=== PATIENT | male | born 1965 | race Caucasian/White ===

== ENCOUNTER 2021-03-30 13:48 | Outpatient (CLI) | payer BC, SELFPAY | END 2021-03-30 13:49 | disposition home or self-care (01) | LOC: ANHAUDIO 13:49 | PROVIDERS: PCP Family Medicine; Visit Provider Otolaryngology | DX: J31.0 Chronic rhinitis (principal); H91.90 Unspecified hearing loss, unspecified ear | CPT/HCPCS: 92557; 92567 ==

== ENCOUNTER 2021-07-11 10:30 | Outpatient (RCR) | payer SELFPAY | END 2021-07-11 23:59 | disposition home or self-care (01) | LOC: ANHAUDIO 10:30 | PROVIDERS: PCP Family Medicine; Visit Provider Family Medicine | DX: Z46.1 Encounter for fitting and adjustment of hearing aid (principal) | CPT/HCPCS: 99199; V5260 ==

== ENCOUNTER → 2022-06-06 09:46 | Outpatient (CLI) | payer BC, SELFPAY ==
--- NOTE | ~2022-06-06 | CT_ITS ---
EXAMINATION: CT sinus wo con DATE: 06/06/2022 10:04 INDICATION: Chronic sinusitis TECHNIQUE: Computed tomography (CT) of the paranasal sinuses was performed without intravenous contra st. The dose-length product (DLP) was 278.24 mGy-cm. Iterative reconstruction was used. COMPARISON: None FINDINGS: There is normal development and pneumatization of the paranasal sinuses. There is reyes bu llosa of the right middle turbinate. There are 4 mm of leftward deviation of the nasal septum. The fr ontal, sphenoid, ethmoid, and maxillary sinuses are clear. The bilateral ostiomeatal complexes are pa tent. Visualized soft tissues are unremarkable. IMPRESSION: 1. Reyes bullosa of the right middle turbinate. Reviewed, dictated and finalized at location B.
== END ==
PROVIDERS: PCP Otolaryngology; Visit Provider Otolaryngology
DX: J32.8 Other chronic sinusitis (principal)
CPT/HCPCS: 70486

== ENCOUNTER 2022-12-12 00:17 | Day surgery (SDC) | payer BC, SELFPAY ==
[2022-11-29 15:12] VITALS: BMI 27.1
--- NOTE | 2022-11-29 15:17 | PC.NURSE ---
Report to the Outpatient Waiting Room, entrance under the green pavilion located off [facility], at time 0730 on date 12/12/22. Planned Procedure Time: 0930. Time changes happen often and if your time is changed the preop area will call you the afternoon before. - You and your visitor will be asked to self-screen and do not enter if you have any COVID symptoms. - Only one visitor is requested with a max of two and NO children visitors are allowed at this time. - The patient visitor may be requested to leave or wait in car when not with patient due to distancing restrictions. - A mask is optional within the hospital at this time. Patients may have clear liquids (water, carbonated beverages, clear teas, apple juice) until 3 hours prior to surgery with a maximum of 20 ounces. - No food from midnight until time of surgery Take the following medications with a SIP of water the morning of surgery: NONE DO NOT STOP ANY OF YOUR OTHER PRESCRIPTION MEDICATIONS PRIOR TO SURGERY?EXCEPT THE FOLLOWING Medications to discontinue per physician: VITAMINS/SUPPLEMENTS Date to take last dose: 12/08/22 Please no make-up, nail zimbabwean, hairspray, perfume, deodorant, or body powder the day of surgery. No jewelry (including any body piercings) or valuables the day of surgery, leave them at home. Please take a shower or bath the night before, or the morning of, surgery with an antibacterial soap. Wear comfortable, loose fitting clothing. - Jewelry must be removed prior to entering the operating room. Rings and piercings that are not removed may be cut off. - The hospital will not accept responsibility for valuables. - Please leave all valuables, including medications, at home the day of surgery. If you are going home after surgery, a licensed [facility]pr ambulance driver must drive you home. - NO public transportation without another adult if you receive anesthesia. - We recommend that an adult stay with you for 24 hours following discharge. - We also recommend that you do not drive, make important decision, drink alcoholic beverages, or take any drugs that were not prescribed by your health care provider for at least 24 hours after your discharge time. Follow any additional instructions given to you from your surgeon. If you or anyone in your household have experienced Covid symptoms in the past week, please notify your surgeon or the nurse liaison at the phone number below for possible testing. Telephone instructions given to PT - ANAID ALBERT and asked if any additional questions and then verbalized understanding. Patient advised to call surgeon office or pre surgery nurse liaison [phone] if any additional questions.
--- NOTE | 2022-12-11 07:49 | PM.IMHP ---
H&P: HPI History of Present Illness Date/Time: 12/11/22 07:49 Chief Complaint: Nasal obstruction, nasal congestion, turbinate hypertrophy, septal deviation, bilateral reyes bullosa Narrative: Planned procedure Review of Systems Review of Systems: All systems reviewed & are unremarkable except as noted in HPI and below [facility] Family History Family History Father Carcinoma of colon Mother Breast cancer Diabetes mellitus Sibling Breast cancer Social History Social History Smoking status: Never smoker Tobacco type: smokeless tobacco Smokeless tobacco user: chewing tobacco Alcohol intake: current Drinks per week: 42 Alcohol use details: 5-6 BEER/DAY Substance use: never Substance use type: does not use Living arrangements: with family Spiritual care concerns: No Meds Home Medications and Allergies Home Medications Medication Instructions Recorded Confirmed Type ascorbic acid (vitamin C) 500 mg 500 mg PO DAILY 03/14/21 11/29/22 History capsule cholecalciferol (vitamin D3) 25 25 mcg PO DAILY 03/14/21 11/29/22 History mcg (1,000 unit) capsule garlic 5,000 mcg tablet 5 mg PO DAILY 07/22/21 11/29/22 History fexofenadine 180 mg tablet 180 mg PO DAILY 11/29/22 11/29/22 History pseudoephedrine HCl 120 mg 120 mg PO Q12H PRN Allergy Symptoms 11/29/22 11/29/22 History tablet,extended release (Sudafed 12 Hour) Allergies Allergy/AdvReac Type Severity Reaction Status Date / Time No Known Allergies Allergy Verified 11/29/22 15:09 Exam Narrative: septal deviation, turbinate hypertrophy, reyes Assessment and Plan Assessment and plan (1) Hypertrophy of both inferior nasal turbinates: Code(s): J34.3 - Hypertrophy of nasal turbinates Status: Acute Assessment and Plan: Plan OR for endoscopic assisted septoplasty, inferior turbinate submucosal reduction with outfracture, resection of bilateral reyes. Risks were discussed including bleeding infection need for postoperative procedures to repair any injury septal perforation postoperative bleeding damage to any structure above the clavicles by myself failure resolve symptoms damage to any structure during the induction and remains anesthesia. Blindness change in vision CSF leak brain brain damage. Patient voiced understanding and agreed. (2) Nasal septal deviation: Code(s): J34.2 - Deviated nasal septum Status: Acute (3) Nasal congestion: Code(s): R09.81 - Nasal congestion Status: Acute (4) Nasal obstruction: Code(s): J34.89 - Other specified disorders of nose and nasal sinuses Status: Acute (5) Reyes bullosa: Code(s): J34.89 - Other specified disorders of nose and nasal sinuses Status: Acute
--- NOTE | 2022-12-11 10:04 | P.PNAN_ITS ---
Anes - Initial Pre Proc Eval Procedure: Operation Date: 12/12/22 11:00 Proposed Procedures p Endoscopic Septoplasty, - Bc Ceballos MD s Bilateral Inferior Turbinectomy with Outfracture, Resection Bilateral Randi Bullosa - cB Ceballos MD Date/Time: 12/11/22 10:04 Surgeon: Bc Ceballos MD Pre Op Diagnosis: septal deviation and turbinate hypertrophy Patient Data Age: 57 Gender: M Height: 1.83 m Weight: 90.72 kg Allergies Allergy/AdvReac Type Severity Reaction Status Date / Time No Known Allergies Allergy Verified 12/12/22 08:20 Home Medications Medication Instructions Recorded Confirmed Type ascorbic acid (vitamin C) 500 mg 500 mg PO DAILY 03/14/21 11/29/22 History capsule cholecalciferol (vitamin D3) 25 25 mcg PO DAILY 03/14/21 11/29/22 History mcg (1,000 unit) capsule garlic 5,000 mcg tablet 5 mg PO DAILY 07/22/21 11/29/22 History fexofenadine 180 mg tablet 180 mg PO DAILY 11/29/22 11/29/22 History pseudoephedrine HCl 120 mg 120 mg PO Q12H PRN Allergy Symptoms 11/29/22 11/29/22 History tablet,extended release (Sudafed 12 Hour) Patient hx anesthesia problems: none Family hx anesthesia problems: none Results Review: All pre-operative results and documents have been reviewed as part of the pre- operative evaluation. [facility] Past Medical History Medical History (Updated 12/11/22 @ 10:05 by Keith Stuart DO) VIRGILIO (obstructive sleep apnea) undiagnosed Family History Family History Father Carcinoma of colon Mother Breast cancer Diabetes mellitus Sibling Breast cancer Social History Social History Smoking status: Never smoker Tobacco type: smokeless tobacco Smokeless tobacco user: chewing tobacco Alcohol intake: current Drinks per week: 42 Alcohol use details: 5-6 BEER/DAY Substance use: never Substance use type: does not use Living arrangements: with family Spiritual care concerns: No Anes - Eval Final PreProcedure Day of Procedure 12/11/22 10:04 Patient weight: overweight Heart: regular rate and rhythm Lungs: clear to auscultation Airway: Mallampati scale class II Neurological: alert and oriented Last oral intake: >/= 8 hours ASA classification: III Emergent: no Anesthetic plan: proceed Anesthesia type and monitoring: general GIVS and standard monitoring Results Review: All pre-operative results and documents have been reviewed as part of the pre- operative evaluation. Informed Consent: The patient's anesthetic plan and its attendant risks and benefits were discussed with the patient/family/POA. Questions were solicited and answers provided to the satisfaction of the patient/family/POA.
[2022-12-12] VITALS (9 sets, daily range): BP systolic 146–162; BP diastolic 79–99; PULSE 67–102; RESP 14–18; TEMP 36.4–36.6; O2SAT 95–100; BMI 28.5
--- NOTE | 2022-12-12 07:13 | WPDHPUPDATE1 ---
History and Physical Update Update Date/Time: 12/12/22 07:13 History and Physical has been reviewed, including an updated exam of the patient. There are NO changes in the patient's condition. Risks, benefits, and alternatives have been discussed and questions answered. Patient agrees to proceed with procedure.
[2022-12-12] MEDS: LACTATED RINGERS 1,000 ML 30 ML IV CONT ×2 (08:35→13:00)
[2022-12-12] MEDS: ACETAMINOPHEN 500 MG TABLET 1000 MG PO (08:39)
[2022-12-12] MEDS: OXYMETAZOLINE HCL 0.05% NAS 15 ML BTL (*BKC) 1 SPRAY NASAL (10:59)
[2022-12-12] MEDS: LIDO 1%/EPINEPHRINE 1:100,000 20 ML VIAL INFILTRATE (10:59)
[2022-12-12] MEDS: ceFAZolin 2 GM/D5W 50 ML 2 GM/50 ML BAG IVPB (11:08)
--- NOTE | 2022-12-12 13:05 | P.OP_ITS ---
Procedure Note - Detailed Date of Procedure 12/12/22 Pre-op Diagnosis septal deviation and turbinate hypertrophy, conchaBullosa nasal obstruction nasal congestion Post-op Diagnosis Same Procedure Performed right-sided resection reyes bullosa endoscopic assisted septoplasty inferior turbinate submucosal reduction with outfracture bilateral Surgeon Bc Ceballos MD Anesthesia General Indications see above Findings left septal deviation no perforation straight nicely turbinates reduced right reyes resected left not resected was not obstructive at all very small Description of Procedure patient identified consent verified. Patient brought operating room. Time-out performed. General anesthesia induced. Endotracheal tube secured airway. Patient prepped draped position 2nd time-out performed. Afrin-soaked pledgets placed the bilateral nasal passages allowed to sit for 5 minutes. Afrin-soaked pledgets removed 0 degree endoscope really I 0 degree endoscope utilized. About 10 cc 1% lidocaine 1 100,000 parts epinephrine injected in the bilateral nasal septum and has a inferior turbinates inferior turbinates reduced in the submucosal plane with microdebrider with turbinate blade. They were then outfractured. Truchas incision made left nasal septum left nasal septal flap elevated crossed over with osteotome right nasal septal flap elevated no perforations. Deviated septum removed combination Guillermo Mandujano forceps Becky forceps osteotome. Truchas incision closed with 3 interrupted 5 0 fast gut suture perfect closure. No space. Right reyes injected 1 cc 1% lidocaine 1 100,000 parts epinephrine incised inferiorly with sickle blade straight through cut utilized to remove portions of the reyes any bleeding controlled with Bovie suction electrocautery setting of 10 mulberry tips cauterized as well. Bilateral nasal passages suction of the posterior choana left reyes examined very small nonobstructive. Beltran splints placed sutured anteriorly using a 3-0 mattressed nylon suture. Total blood loss about 100 cc. I performed all dictated portions of the procedure. No complications. Patient tolerated the procedure well. Care the patient given Anesthesiology. Patient taken to PACU. Estimated Blood Loss 100 Drains No Packing No Pathology None sent Complications No immediate complications Condition Stable Disposition PACU [facility] Billing Surgery - Charge Forward: Surgery Billing
[2022-12-12] MEDS: oxyCODONE HCL (*CRX) 5 MG TAB IR PO (14:42)
== END 2022-12-12 15:30 | disposition home or self-care (01) ==
PROVIDERS: PCP Family Medicine; Visit Provider Otolaryngology
PROC: (CPT 30520; principal; 2022-12-12 10:00)
PROC: (CPT 31240; 2022-12-12 10:00)
DX: J34.2 Deviated nasal septum (principal); J34.89 Other specified disorders of nose and nasal sinuses; R09.81 Nasal congestion; J34.3 Hypertrophy of nasal turbinates; F17.220 Nicotine dependence, chewing tobacco, uncomplicated
CPT/HCPCS: 31240; 30520; 30140; A9270; J0690; J1100; J2250; J2405; J2704; J3010; J7120